=== PATIENT | female | born 1975 | race Caucasian/White ===

== ENCOUNTER → 2023-11-22 10:07 | Outpatient (REF) | payer BC, SELFPAY | LOC: HWWDC 10:07 | PROVIDERS: ATTENDING PHYSICIAN Obstetrics & Gynecology Gynecology; FAMILY PHYSICIAN Family Medicine | DX: Z12.31 Encounter for screening mammogram for malignant neoplasm of breast (principal) | CPT/HCPCS: 77063; 77067 ==

== ENCOUNTER → 2024-05-16 08:55 | Outpatient (REF) | payer BC, SELFPAY | LOC: HWRAD 08:55 | PROVIDERS: ATTENDING PHYSICIAN Obstetrics & Gynecology Gynecology; FAMILY PHYSICIAN Family Medicine | DX: N83.209 Unspecified ovarian cyst, unspecified side (principal) | CPT/HCPCS: 76830; 76856 ==

== ENCOUNTER → 2024-07-08 10:38 | Outpatient (REF) | payer BC, SELFPAY | LOC: HWRAD 10:38 | PROVIDERS: ATTENDING PHYSICIAN Family Medicine | DX: E03.9 Hypothyroidism, unspecified (principal); Z82.62 Family history of osteoporosis; E55.9 Vitamin D deficiency, unspecified | CPT/HCPCS: 77080 ==

== ENCOUNTER → 2024-12-17 14:25 | Outpatient (REF) | payer BC, SELFPAY | LOC: HWWDC 14:25 | PROVIDERS: ATTENDING PHYSICIAN Obstetrics & Gynecology Gynecology; FAMILY PHYSICIAN Family Medicine | DX: Z12.31 Encounter for screening mammogram for malignant neoplasm of breast (principal) | CPT/HCPCS: 77063; 77067 ==

== ENCOUNTER → 2024-12-30 09:32 | Outpatient (REF) | payer BC, SELFPAY | LOC: WDC 09:32 | PROVIDERS: ATTENDING PHYSICIAN Obstetrics & Gynecology Gynecology; FAMILY PHYSICIAN Family Medicine | DX: R92.8 Other abnormal and inconclusive findings on diagnostic imaging of breast (principal) | CPT/HCPCS: 76642 ==

== ENCOUNTER → 2025-06-16 08:41 | Outpatient (REF) | payer BC, SELFPAY | LOC: RAD 08:41 | PROVIDERS: ATTENDING PHYSICIAN Obstetrics & Gynecology Gynecology; FAMILY PHYSICIAN Family Medicine | DX: N83.209 Unspecified ovarian cyst, unspecified side (principal) | CPT/HCPCS: 76830; 76856 ==